=== PATIENT | female | born 1980 | race Caucasian/White ===

== ENCOUNTER 2016-05-16 18:52 | Inpatient (IN) | payer OTHER ==
[2016-05-16] MEDS ORDERED: LIDOCAINE 1% (PRES FREE) 30 ML VIAL ONE (18:58)
[2016-05-16] MEDS ORDERED: LACTATED RINGERS 1,000 ML ONE (18:58)
[2016-05-16] MEDS ORDERED: OXYTOCIN 10 UNITS/ML VIAL ONE (18:58)
[2016-05-16] MEDS ORDERED: IV START KIT ONE (18:58)
[2016-05-16] MEDS ORDERED: MINERAL OIL 25 ML BOT ONE (18:58)
[2016-05-16] MEDS ORDERED: SODIUM CHLORIDE 0.9% FLUSH 30 ML ONE (18:59)
[2016-05-16] MEDS ORDERED: LIDOCAINE Viscous 2% 15 ML UDCUP ONE (18:59)
[2016-05-16] MEDS ORDERED: OXYTOCIN IN LR 500 ML IV ONE (18:59)
[2016-05-16] MEDS ORDERED: PUMP TUBING ONE (18:59)
[2016-05-16] MEDS ORDERED: DINOPROSTONE 10 MG SUP VG ONE (19:05)
[2016-05-16 19:35] VITALS: BMI 26.7
[2016-05-16 20:08] LABS: HEMATOCRIT 39.6 % (37.0-47.0); HEMOGLOBIN 12.9 gm/l (12.0-16.0); MEAN CELL VOLUME 92.5 fl (81.0-99.0); MEAN CORPUSCULAR HEMOGLOBIN 30.1 pg (27.0-31.0); MEAN CORPUSCULAR HGB CONC 32.6 g/dl (33.0-37.0); RED CELL DISTRIBUTION WIDTH 13.9 % (11.5-14.5)
--- NOTE | 2016-05-16 21:28 | PCMAN ---
OB Admission Note - History : 2 Term: 1 : 0 Abortions (S&E): 0 Livin EDC:: 05/17/16 Gestational Age (weeks): 39 Days (#/7): 6 Admit Cervical Dilation:: 2 Admit Cervical Effacement (%):: 50 Admit Station:: 0 Admit Presentaton:: vtx in office yesterday Membrane Status: Intact Contractions: No Contraction Frequency:: irreg, difficult to see on monitor Heart Rate:: 125 (moderate variability, accels, no decels) Status:: Cat 1 EFW:: AGA Summary of Course:: at 39w6 days for elective induction due to ongoing pain that is causing disability, inability to work and is lying down most of the day to manage the pain. EDC 05/17/16 by 8w4d US on 10/10/15. PNC was unremarkable until about 28 weeks when she had increased pelvic pressure. tail bone pain, low back pain, hip pain, and trochanteric pain. 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 She stopped working about 37 weeks due to the pain and trying to manage until labor or 41 weeks at home. Despite this break from work she has continued to have pain that has been difficult for her to manage. She has tried mechanical support, SI belt, Abdominal support without relief. She has not been taking medication for this and does not want to take medication in unless absolutely necessary. She is not sleeping well and is very tired. We had originally planned induction for 41 weeks as she went to 42 weeks with her first baby without difficulty and had wanted to give herself every chance to labor naturally. But she has asked if we could move this up to 40 weeks. We have had several discussions about indications for induction and elective inductions. I have been reluctant to move up her induction, but this week in the office she did have some cervical change and had a Bassett score of 5 which is an improvement from the week before. We have discussed extensively the pros and cons of elective inductions vs her pain management concerns and lack of being able to actually function in life for almost 3 weeks now, and limited before that. Given that her conviction to avoid intervention in prior and initial desire with this but now repeatedly asking for induction past 39 weeks, and our discussions, I do think that pain can be a reasonable indication for induction, especially past 39 weeks for this patient and I am encouraged by her cervical change that we could be successful with vaginal delivery. This is her desire Hx and exam er office visit 05/15/16 - Labs Blood Type: O (+) positive Rubella Status: Immune GBS Status: Negative Abnormal Labs: None - Physical Exam General: Afebrile Psych/Mental Status: Flat Affect (in office, and appears uncomfortable) Neurological: Grossly Intact, Alert, Oriented x 4, No Normal Gait Extremities: No Edema Skin: Normal Color, Warm, Dry, Intact - Problems (1) Term Status: Acute Code: Z34.80Assessment/Plan: 39w 6d here for elective induction due to ongoing pelvic, hip, tailbone, low back pain. Bassett score of 5--will use Cervidil for ripening tonight and then eval if we can AROM or if we need to use pitocin in the morning. Induction and complications have been reviewed. She desires to proceed (2) Pain Status: Acute Code: [id number]/Plan: LBP, Coxyx, Hip, Pelvic pain
[2016-05-16] MEDS ORDERED: LACTATED RINGERS 1,000 ML IV PRN (23:08)
[2016-05-17] MEDS ORDERED: OXYTOCIN IN LR 500 ML IV ONE (08:21)
[2016-05-17] MEDS ORDERED: OXYTOCIN IN LR 500 ML IV PRN (10:12)
--- NOTE | 2016-05-17 10:12 | PDOC36 ---
Provider Note Subject: S/ Slept a little last night. Some contractions nothing too painful. Just had some breakfast. O/ AF VSS FHT 135 mod variability, + accels, no decels, cat 1 TOCO irregular SVE /-1 posterior, soft After discussion of options we elected for AROMlear fluid returned. A/P 40 week induction due to generalized hip, back, coccyx pain for over 12 weeks limiting activity and function. AROM--await contractions, if none in 2 hours, then will augment with Pitocin reviewed. OK for epidural if painful
[2016-05-17] MEDS: LACTATED RINGERS 1,000 ML IV SCH ×2 (10:31→15:00)
[2016-05-17] MEDS ORDERED: FENTANYL/ROPIVACAINE EPIDURAL 250 ML EP ONE (13:44)
[2016-05-17] MEDS ORDERED: EPIDURAL PUMP SET ONE (13:45)
[2016-05-17] MEDS ORDERED: EPIDURAL PROCEDURE TRAY ONE (14:02)
[2016-05-17] MEDS ORDERED: ROPIVACAINE 0.5% 30 ML VIAL ONE (14:02)
--- NOTE | 2016-05-17 15:33 | PDOC36 ---
Provider Note Subject: S/ Has epidural but not working on left side. Painful contractions O/ AF VSSPitocin 4mu FHT 135 moderate variability, + accels, some early decels, cat 1 TOCO Q2.5-3 minutes SVE 8 with more anterior cervix/100/+1 ROT position A/P 40 week induction due to intolerable pain making progress, reposition and see if we can get epidural working on the left, and fetus to turn and then anticipate possible rapid delivery. Will be immediately available for delivery
[2016-05-17] MEDS ORDERED: MAGNESIUM HYDROXIDE 30 ML UDCUP PO PRN (16:36)
[2016-05-17] MEDS ORDERED: HYDROCODONE/ACETAMINOPHEN 5/325MG TABLET PO PRN (16:36)
[2016-05-17] MEDS ORDERED: OXYCODONE HCL 5 MG TABLET PO PRN (16:36)
[2016-05-17] MEDS ORDERED: SENNOSIDES 8.6 MG TABLET PO PRN (16:36)
[2016-05-17] MEDS ORDERED: CALCIUM CARBONATE 500 MG TAB.CHEW PO PRN (16:36)
[2016-05-17] MEDS ORDERED: BENZOCAINE/MENTHOL 60 APPLIC/BOT TP PRN (16:36)
[2016-05-17] MEDS ORDERED: LANOLIN 50 APPLIC/7G TUBE TP PRN (16:36)
--- NOTE | 2016-05-17 17:57 | PCMDEL ---
Delivery Note - Labor 1st stage (hr/min):: 0808--1544 7 hrs 36 minutes 2nd stage (hr/min):: 1544--1621 37 minutes 3rd stage (hr/min):: 1621--1629 8 minutes Total (hr/min):: 8 hours 21 minutes Pushed (hr/min):: 37 minutes - Delivery Delivery (Date): 05/17/16 Delivery (Time): 16:21 Gender: Female Weight: 3.84 kg Presentation: Cephalic Position: OA Umbilical Cord: 3 Vessel Delayed Cord Clamping:: > 3 min 1 Minute Total: 9 5 Minute Total: 9 Placenta:: intacht, normal EBL:: 200mls Perineum:: intact with labial abrasion left Suture:: none Anesthesia/Meds:: epidural Length ROM:: 0807--1621: 8 hrs 13 minutes
[2016-05-17] MEDS: IBUPROFEN 800 MG TABLET PO SCH (19:35)
[2016-05-18] MEDS: IBUPROFEN 800 MG TABLET PO SCH ×5 (01:02→21:18)
[2016-05-18 07:20] LABS: HEMATOCRIT 34.6 % (37.0-47.0); HEMOGLOBIN 11.5 gm/l (12.0-16.0)
--- NOTE | 2016-05-18 08:14 | PDOC44 ---
- Subjective Day: 1 Reports Pain Tolerable, Reports , Reports Lochia Light, Reports Tolerating Regular Diet - Objective Temp Pulse Resp BP Pulse Ox 97.8 F 68 16 124/69 05/18/16 01:26 05/18/16 01:26 05/18/16 01:26 05/18/16 01:26 Lab Results 05/18/16 06:28 Hgb 11.5 L Hct 34.6 L Current Medications Generic Name Dose Route Start Last Admin Trade Name Freq PRN Reason Stop Dose Admin Acetaminophen/Hydrocodone Bitart 1 - 2 tab 05/17/16 16:36 [place] 5/325 PO Q4H PRN Pain (Moderate) Benzocaine/Menthol 1 applic 05/17/16 16:36 Dermoplast TP PRN PRN Patient Comfort Calcium Carbonate/Glycine 500 - 1,000 mg 05/17/16 16:36 Tums PO BID PRN Indigestion Emollient Ointment 1 applic 05/17/16 16:36 [id number] TP PRN PRN sore nipples Ibuprofen 800 mg 05/17/16 16:45 05/18/16 01:02 Motrin PO 800 mg Q6H MARIN Administration Magnesium Hydroxide 30 ml 05/17/16 16:36 Milk Of Magnesia PO BEDTIME PRN Constipation Oxycodone HCl 5 - 10 mg 05/17/16 16:36 Roxicodone PO Q3H PRN Pain (Severe) Senna 17.2 mg 05/17/16 16:36 Senokot PO BEDTIME PRN Comfort Sodium Chloride 10 ml 05/17/16 16:36 Normal Saline 10ml Flush IV PRN PRN IV Flush - Physical Exam General: Afebrile Psych/Mental Status: Mood/Affect Appropriate, Judgment/Insight Intact, Bonding Well Neurological: Grossly Intact, Alert, Oriented x 4 Lungs: Clear to Auscultation Bilaterally, Normal Air Movement Cardiovascular: Regular Rate and Rhythm, Normal S1, Normal S2 Fundus: Firm, Below Umbilicus Abdomen: No Distention Extremities: Full ROM, No Cyanosis, No Edema, No Tenderness Skin: Normal Color, Warm, Dry, Intact - Problems:Assessment/Plan (1) (spontaneous vaginal delivery) Status: AcuteAssessment/Plan: PPD #1 doing well Working on BF Plans to go home tomorrow morning Disposition: Stable, Anticipate DC Home Tomorrow
[2016-05-19] MEDS: IBUPROFEN 800 MG TABLET PO SCH (05:12)
--- NOTE | 2016-05-19 07:25 | PDOC39B ---
ADMIT DATE: 05/16/16 DISCHARGE DATE: ADMISSION DIAGNOSES: 39w6d Musculoskeletal Pain DISCHARGE DIAGNOSES: 40 weeks Musculoskeletal PROCEDURES: Epidural HISTORY OF PRESENT ILLNESS: 35 year old at 39 weeks 6 days presenting with ongoing musculoskeletal pain that had impaired her activity and ability to work. She had been spending most of her time resting due to the pain. After several discussions and much consideration we elected to proceed with induction at 39w6d with brooks score 5. PNC was otherwise uncomplicated DELIVERY INFORMATION: Delivery Date/Time: 05/17/16 @ 16:21 Weight: 3.827 kg Totals: 1 minute 9, 5 minute 9 Lacerations: intact with labial abrasion left Repair: none Anesthesia/Meds: epidural Blood Loss: 200mls HOSPITAL COURSE: The patient did well PP without concerns By day of discharge the patient is ambulating, eating, voiding, and passing flatus without difficulty. Pain is controlled and lochia is appropriate. She is . - Physical Exam Vital Signs: Temp Pulse Resp BP Pulse Ox 97.4 F 70 16 109/62 05/19/16 01:47 05/19/16 01:47 05/19/16 01:47 05/19/16 01:47 General: Afebrile Psych/Mental Status: Mood/Affect Appropriate, Judgment/Insight Intact, Bonding Well Neurological: Grossly Intact, Alert, Oriented x 4 Lungs: Clear to Auscultation Bilaterally, Normal Air Movement Cardiovascular: Regular Rate and Rhythm, Normal S1, Normal S2, No Murmur Fundus: Firm, Below Umbilicus Abdomen: No Tenderness, No Distention Extremities: Full ROM, No Cyanosis, No Edema, No Tenderness Skin: Normal Color, Warm, Dry, Intact - Discharge Diagnosis (1) (spontaneous vaginal delivery) Status: AcuteAssessment/Plan: PPD #2 doing well Working on BF Home today - Discharge Plan Condition: Good Disposition: Home Prescriptions: Ibuprofen [IBUPROFEN 800 MG TABLET (SHF)] 800 mg PO Q8H #30 Follow-Up: Ursula Gallardo MD [Primary Care Provider] - In 6 weeks
[2016-05-19 10:41] VITALS: BP 128/81
== END 2016-05-19 10:18 | disposition home or self-care (01) | DRG 775 ==
LOC: FBC 18:52 → EDSTATUS 05-18 20:59
PROVIDERS: ADMIT Family Medicine; ATTEND Family Medicine
PROC: 3E0P7GC Introduction of Other Therapeutic Substance into Female Reproductive, Via Natural or Artificial Opening (ICD-10-PCS; 2016-05-16)
PROC: 10E0XZZ Delivery of Products of Conception, External Approach (ICD-10-PCS; principal; 2016-05-17)
PROC: 10907ZC Drainage of Amniotic Fluid, Therapeutic from Products of Conception, Via Natural or Artificial Opening (ICD-10-PCS; 2016-05-17)
DX: O75.89 Other specified complications of labor and delivery (principal); R52 Pain, unspecified; Z37.0 Single live birth; Z3A.40 40 weeks gestation of pregnancy; O09.523 Supervision of elderly multigravida, third trimester

== ENCOUNTER 2016-05-23 15:51 | Outpatient (CLI) | payer OTHER | END 2016-05-23 15:52 | disposition home or self-care (01) | LOC: BABIESSH 15:51 | PROVIDERS: ATTEND Family Medicine | DX: Z39.1 Encounter for care and examination of lactating mother (principal) ==